=== PATIENT | female | born 1965 | race Caucasian/White ===

== ENCOUNTER 2018-08-11 02:59 | Emergency (ER) | payer MEDICAID ==
[~2018-08-11] VITALS: Ht 172.7 cm; Wt 77.2 kg
[~2018-08-11 02:59] MED LIST: LEVO50TA67 PO; METH10DI2 PO; METO-539 PO
--- NOTE | 2018-08-11 03:16 | NUR ---
dr. reyna at bedside. pt reports she was carrying hwer 60 lb dog up stairs and twisted and hurt her mid back. a few hrs later , around midnight she started having the upper abd pain.
[2018-08-11] MEDS ORDERED: ondansetron 4mg rapidly disintigrating tab PO ONE (03:20)
[2018-08-11] MEDS ORDERED: HYDROmorphone 1 mg/ml syringe IM ONE ×2 (03:20→06:00)
[2018-08-11] MEDS ORDERED: diazepam 5mg tablet PO ONE (03:20)
[2018-08-11] MEDS ORDERED: proMETHazine 25mg tablet PO ONE (03:45)
[2018-08-11] MEDS ORDERED: HYDROmorphone 1 mg/ml syringe IV ONE (03:45)
--- NOTE | 2018-08-11 03:46 | NUR ---
pt reporting no relief of the nausea or pain 12 minutes after administration. verbal received for adtl dilaudid 1 mg im and phenergan.
--- NOTE | 2018-08-11 04:47 | NUR ---
Pt reports nausea is 6 out of 10 and pain to abd and back down to 7 out of 10. She requests to ask MD about a back xray. Dr. Jaime updated.
--- NOTE | 2018-08-11 05:35 | NUR ---
DR. ACE IN TO SEE HER AND REPORTS SHE IS SLEEPING AND HE WILL BE DISCHARGING HER.
--- NOTE | 2018-08-11 05:43 | NUR ---
PT NOW AWAKE AND AT BEDSIDE. I UPDATED DR. ACE OF THIS. SHE APPEARS SLEEPY, BUT IS REPORTING CONTINUED PAIN TO HER ABDOMEN TO HER .
[2018-08-11] MEDS ORDERED: HYDR-3965 PO (05:44)
[2018-08-11] MEDS ORDERED: VAL5T PO (05:44)
[2018-08-11] MEDS ORDERED: METH4TAB3 PO (05:44)
[2018-08-11] MEDS ORDERED: ONDA4TAB6 PO (05:44)
[2018-08-11] MEDS ORDERED: METH500T PO (05:54)
--- NOTE | 2018-08-11 06:02 | NUR ---
dr reyna talking with pt. PT TO RECEIVE DILAUDID 1 MG IM (3RD DOSE) AND THEN BE DISCHARGED.
[2018-08-11 06:13] VITALS: BP 97/50
== END 2018-08-11 06:15 | disposition home or self-care (01) ==
LOC: ER 03:00
DX: S39.012A Strain of muscle, fascia and tendon of lower back, initial encounter (principal); S29.012A Strain of muscle and tendon of back wall of thorax, initial encounter; E03.9 Hypothyroidism, unspecified; G89.29 Other chronic pain; Z88.8 Allergy status to other drugs, medicaments and biological substances; Z79.899 Other long term (current) drug therapy; X50.1XXA Overexertion from prolonged static or awkward postures, initial encounter; Y93.89 Activity, other specified; Y92.89 Other specified places as the place of occurrence of the external cause; Y99.8 Other external cause status
CPT/HCPCS: 96372; 96374; 99284; J1170; Q0169

== ENCOUNTER 2023-05-30 12:58 | Emergency (ER) | payer MEDICAID ==
[~2023-05-30] VITALS: Ht 170.2 cm; Wt 84.0 kg
[~2023-05-30 12:58] MED LIST changes: +METH500T PO; +ONDA4TAB6 PO
--- NOTE | 2023-05-30 14:27 | NUR ---
REPORT TO KARRI SANCHEZ, PT IS RESTING QUIETLY ON GURNEY, RESP EVEN AND UNLABORED, SKIN P/W/D, WAITING TO BE EVALUATED BY PROVIDER
[2023-05-30 14:38] VITALS: BP 155/77; PULSE 58; RESP 16; TEMP 97.7; O2SAT 99
[2023-05-30 15:01] LABS: STREP A SCREEN NEGATIVE (Neg)
== END 2023-05-30 15:31 | disposition home or self-care (01) ==
LOC: ER 12:59
DX: J02.9 Acute pharyngitis, unspecified (principal); E03.9 Hypothyroidism, unspecified; G89.29 Other chronic pain; Z88.8 Allergy status to other drugs, medicaments and biological substances; Z79.899 Other long term (current) drug therapy
CPT/HCPCS: 87081; 87880; 99283

== ENCOUNTER 2024-11-07 15:35 | Outpatient (CLI) | payer MEDICAID | END 2024-11-07 23:59 | disposition home or self-care (01) | LOC: 64 CT 15:35 | PROVIDERS: ATTEND Family Medicine | DX: R51.9 Headache, unspecified (principal) | CPT/HCPCS: 70450 ==